=== PATIENT | female | born 1960 | race Caucasian/White ===

== ENCOUNTER 2018-09-04 06:48 | Inpatient (IN) | payer BC, OTHER ==
[2018-09-04 07:37] VITALS: BMI 31.1
--- NOTE | 2018-09-04 08:16 | PDOC ---
History of Present Illness - General Chief Complaint: Blood Pressure Problem Stated Complaint: ELEVATED BLOOD PRESSURE,LT EAR BLEEDING Time Seen by Provider: 09/04/18 07:48 History Source: Patient - History of Present Illness Timing/Duration: other (yesterday) Past History - Past Medical History Allergies/Adverse Reactions: Allergies Allergy/AdvReac Type Severity Reaction Status Date / Time No Known Allergies Allergy Verified 09/04/18 07:20 Home Medications: Ambulatory Orders Amlodipine Besylate [Norvasc -] 10 mg PO DAILY 09/04/18 Cancer: Yes (rt breast) COPD: No HTN: Yes - Immunization History Immunization Up to Date: Yes - Suicide/Smoking/Psychosocial Hx Smoking History: Never smoked Information on smoking cessation initiated: No Hx Alcohol Use: No Drug/Substance Use Hx: No Substance Use Type: None Review of Systems - Review of Systems Constitutional: No: Chills, Fever HEENTM: Yes: Ear Pain Respiratory: No: Shortness of Breath Cardiac (ROS): Yes: Palpitations. No: Chest Pain ABD/GI: Yes: Nausea. No: Vomiting *Physical Exam - Vital Signs Last Vital Signs Temp Pulse Resp BP Pulse Ox 99 F 107 H 18 176/110 H 97 09/04/18 07:17 09/04/18 07:17 09/04/18 07:17 09/04/18 07:17 09/04/18 07:17 - Physical Exam General Appearance: Yes: Appropriately Dressed, Mild Distress HEENT: positive: Normal Voice, Pharynx Normal, Other (purulent debris w/ sig ttp to L canal, no sig swelling, able to visualize a nl jason TM, no swelling/ttp over mastoid) Neck: positive: Supple Respiratory/Chest: positive: Lungs Clear, Normal Breath Sounds. negative: Respiratory Distress Cardiovascular: positive: S1, S2, Tachycardia Gastrointestinal/Abdominal: positive: Soft. negative: Tender Integumentary: positive: Dry, Warm Neurologic: positive: Fully Oriented, Alert, Normal Mood/Affect ED Treatment Course - LABORATORY CBC & Chemistry Diagram: 09/04/18 09:00 09/04/18 09:00 Medical Decision Making - Medical Decision Making 09/04/18 08:12 57 yo female, history of hypertension on Norvasc, here with severe L ear pain with otorrhea since yesterday. No sore throat, fever or chills. No recent trauma. No history of similar episode. See exam Otitis externa -Will tx w/ abx drops upon discharge Elevated BP Bp 176/110 w/ HR 107 Compliant w/ 10mg norvasc per pt Dx w/ HTN 06/01, started on meds by ER doc, does not have a PMD per pt Took home dose of meds while in ED few minutes ago Was asx until in ED, now c/o LIRA, nausea and palpitations No CP/SOB No h/o CAD -ekg and labs pending 09/04/18 10:21 HR now 130s. Rpt BP improved. Patient complaining of palpitations now. Will put on monitor, start IVF and send dimer 09/04/18 12:15 Ddimer elevated. Patient now tells me that she has a history of L breast cancer , s/p double mastectomy and chemotherapy over 13 years ago with no known recurrence. States both of her legs have been "crampy" recently. CTA and bilateral dopplers pending 09/04/18 15:23 CTA read as negative. HR now 105. B/l dopplers pending 09/04/18 15:51 Ultrasound read as negative for DVT. On reassessment, patient reports that she is feeling better. Rpt vitals improved, HR now 97. Pt now tells me that she was seen for palpitations at [facility] last year and was kept overnight. States numerous labs were done including thyroid tests that were all negative. Denies h/o anxiety. Pt states she feels well enough to be discharged. Will give referral to see Dr. Raymond Hill. Cards referral also given. Reasons to return discussed with patient. Dr. Todd aware of disposition 09/04/18 17:25 Pt now reports that she does not feel well enough to go home and states she now has palpitations despite rpt HR being WNL. On further history taking, patient admits that she drank an excessive amount this weekend including several bottles of wine because of "issues with my mother", otherwise denies a history of alcohol abuse to me. ED attg aware. Working diagnosis is now possible alcohol withdrawal, which could explain tachycardia and elevated BP. IV Valium not in stock, will give dose of ativan and admit at this time 09/04/18 18:47 Case d/w hospitalist and pt admitted to OBs *DC/Admit/Observation/Transfer Diagnosis at time of Disposition: Elevated blood pressure reading, Palpitations Otitis externa Qualifiers: Otitis externa type: unspecified type Chronicity: acute Laterality: left Qualified Code(s): H60.502 - Unspecified acute noninfective otitis externa, left ear - Discharge Dispostion Condition at time of disposition: Fair Decision to Admit order: Yes - Referrals Referrals: Raymond Hill MD [Staff Physician] - Martin North MD [Staff Physician] - - Patient Instructions - Post Discharge Activity
[2018-09-04] MEDS ORDERED: IBUPROFEN 400 MG TABLET (FP) PO ONE ×2 (08:17→08:46)
[2018-09-04 09:22] LABS: BASO % 0.5 % (0-2.0); EOS % 0.2 % (0-4.5); HEMATOCRIT 42.3 % (32.4-45.2); HEMOGLOBIN 14.1 GM/dL (10.7-15.3); MCH 30.5 pg (25.7-33.7); MCHC 33.4 g/dl (32.0-36.0); MEAN CELL VOLUME 91.2 fl (80-96); MEAN PLT VOLUME 7.4 fl (7.5-11.1); MONO % 5.5 % (3.8-10.2); NEUT % 79.8 % (42.8-82.8); PLATELET COUNT 283 K/MM3 (134-434); RBC 4.64 M/mm3 (3.60-5.2); RDW 14.9 % (11.6-15.6); WHITE BLOOD COUNT 11.7 K/mm3 (4.0-10.0)
[2018-09-04 09:29] LABS: EPI CELLS 0.9 /HPF (0-5/HPF); URINE APPEARANCE CLEAR; URINE BILIRUBIN NEGATIVE (NEGATIVE); URINE CASTS 0 /lpf (0-8); URINE COLOR YELLOW; URINE GLUCOSE (UA) NEGATIVE (NEGATIVE); URINE KETONE 1+ (NEGATIVE); URINE LEUK ESTERASE NEGATIVE (NEGATIVE); URINE NITRITE NEGATIVE (NEGATIVE); URINE PROTEIN 1+ (NEGATIVE); URINE RBC 1 /hpf (0-4); URINE UROBILINOGEN 0.2 mg/dL (0.2-1.0); URINE WBC 1 /hpf (0-5)
[2018-09-04 10:01] LABS: ALBUMIN 4.1 g/dl (3.4-5.0); ALK PHOS 123 U/L (45-117); ANION GAP 11 MMOL/L (8-16); BILIRUBIN,TOTAL 0.4 mg/dL (0.2-1); BLOOD UREA NITROGEN 7 mg/dL (7-18); CALCIUM 9.5 mg/dL (8.5-10.1); CHLORIDE 100 mmol/L (98-107); CO2 26 mmol/L (21-32); CREATININE 0.6 mg/dL (0.55-1.3); GLUCOSE,RANDOM 100 mg/dL (74-106); SGOT/AST 23 U/L (15-37); SGPT/ALT 28 U/L (13-61); SODIUM 137 mmol/L (136-145); TOT PROT 8.3 g/dl (6.4-8.2)
[2018-09-04] MEDS ORDERED: SODIUM CHLORIDE 1,000 ML IV STA (10:20)
[2018-09-04] MEDS ORDERED: ACETAMINOPHEN 1000 MG/100 ML VIAL (NON FORMULARY) IVPB ONE (10:22)
--- NOTE | 2018-09-04 10:23 | EKG ---
Test Reason : Blood Pressure : / mmHG Vent. Rate : 095 BPM Atrial Rate : 095 BPM P-R Int : 150 ms QRS Dur : 086 ms QT Int : 380 ms P-R-T Axes : 037 -43 016 degrees QTc Int : 477 ms NORMAL SINUS RHYTHM POSSIBLE LEFT ATRIAL ENLARGEMENT LEFT AXIS DEVIATION LEFT VENTRICULAR HYPERTROPHY ANTEROSEPTAL INFARCT (CITED ON OR BEFORE 04-SEP-2018) ABNORMAL ECG WHEN COMPARED WITH ECG OF 09-FEB-2009 09:15, VENT. RATE HAS INCREASED BY 32 BPM QUESTIONABLE CHANGE IN INITIAL FORCES OF SEPTAL LEADS ST NO LONGER DEPRESSED IN INFERIOR LEADS Confirmed by PRABHAKAR SIMMONS, TONNY ([id number]) on 09/04/2018 10:23:22 AM Referred By: Confirmed By:TONNY RADFORD MD
[2018-09-04] MEDS ORDERED: METOCLOPRAMIDE HCL INJECTION 10 MG/2 ML VIAL IVPB ONE (10:52)
[2018-09-04] MEDS ORDERED: METOCLOPRAMIDE HCL INJECTION 10 MG/2 ML VIAL ONE (12:06)
[2018-09-04] MEDS ORDERED: ACETAMINOPHEN INJECTION 100 ML IVPB ONE (12:07)
--- NOTE | 2018-09-04 17:10 | PDOC ---
*Physical Exam - Vital Signs Last Vital Signs Temp Pulse Resp BP Pulse Ox 98.7 F 97 H 18 160/98 97 09/04/18 16:35 09/04/18 16:35 09/04/18 16:35 09/04/18 16:35 09/04/18 16:35 - Physical Exam General Appearance: Yes: Nourished HEENT: positive: ROSA, Other (left ear canal with erythema, crusting. no tenderness over mastoid ) Respiratory/Chest: positive: Lungs Clear, Normal Breath Sounds Cardiovascular: positive: Regular Rhythm, Regular Rate, S1, S2 Gastrointestinal/Abdominal: positive: Normal Bowel Sounds, Flat, Soft. negative : Tender Musculoskeletal: positive: Normal Inspection Extremity: positive: Normal Capillary Refill, Normal Inspection Integumentary: positive: Normal Color, Dry, Warm Neurologic: positive: Fully Oriented, Alert, Normal Mood/Affect ED Treatment Course - LABORATORY CBC & Chemistry Diagram: 09/04/18 09:00 09/04/18 09:00 - ADDITIONAL ORDERS Additional order review: Laboratory Results 09/04/18 09/04/18 09/04/18 11:01 09:15 09:00 D-Dimer 763 H Sodium 137 Potassium 4.0 Chloride 100 Carbon Dioxide 26 Anion Gap 11 BUN 7 Creatinine 0.6 Creat Clearance w eGFR 103.04 Random Glucose 100 Calcium 9.5 Total Bilirubin 0.4 AST 23 ALT 28 Alkaline Phosphatase 123 H Creatine Kinase 185 Creatine Kinase Index 0.8 CK-MB (CK-2) 1.6 Troponin I < 0.02 Total Protein 8.3 H Albumin 4.1 Urine Color Yellow Urine Appearance Clear Urine pH 8.0 Ur Specific [place] 1.014 Urine Protein 1+ H Urine Glucose (UA) Negative Urine Ketones 1+ H Urine Blood Negative Urine Nitrite Negative Urine Bilirubin Negative Urine Urobilinogen 0.2 Ur Leukocyte Esterase Negative Urine WBC (Auto) 1 Urine RBC (Auto) 1 Urine Casts (Auto) 0 U Epithel Cells (Auto) 0.9 Urine Bacteria (Auto) 9.0 09/04/18 09:00 RBC 4.64 MCV 91.2 MCHC 33.4 RDW 14.9 MPV 7.4 L Neutrophils % 79.8 Lymphocytes % 14.0 Monocytes % 5.5 Eosinophils % 0.2 Basophils % 0.5 - Medications Given in the ED: ED Medications Discontinued Medications Generic Name Dose Route Start Last Admin Trade Name Freq PRN Reason Stop Dose Admin Acetaminophen 1,000 mg 09/04/18 10:22 09/04/18 12:00 Ofirmev Injection - IVPB 09/04/18 10:23 1,000 mg ONCE ONE Administration Sodium Chloride 1,000 mls @ 1,000 mls/hr 09/04/18 10:20 09/04/18 12:00 Normal Saline - IV 09/04/18 11:19 1,000 mls/hr ASDIR STA Administration Ibuprofen 800 mg 09/04/18 08:17 09/04/18 09:00 Motrin - PO 09/04/18 08:18 800 mg ONCE ONE Administration Metoclopramide HCl 10 mg 09/04/18 10:52 09/04/18 12:00 Reglan Injection - IVPB 09/04/18 10:53 10 mg ONCE ONE Administration Medical Decision Making - Medical Decision Making 09/04/18 17:07 57 yo F h/o palpitations, breast ca c/p mastectomuy bilat. HTN ( admitted to [facility] 06/01) here with /co left ear pain. pt states her ear canal has been hurting for week. witth drainage. no trauma. no headache. no f/c. in addition, pt states she is having palpitations. no cp no sob. states she saw modeling analyst for this in [facility] but has not followed up, denies daily etoh intake, but did have binge of etoh this weekend. denies h/o etoh withdrawal sxs. has been borderline diabetic in the past. pt seen and examined with keerthi moss. differentia include dehydration infection anbemia. initial heart rate 130, pt heart rate improved with hydration but still c/o palpations. d dimer to r/o pe due to h/o cancer. positive. cta and dopplers ordered and negative. . due to persistant palpations will admit, otitis externia and dysthyrmia, concerns for etoh withdrawal. htn *DC/Admit/Observation/Transfer Diagnosis at time of Disposition: Elevated blood pressure reading, Palpitations Otitis externa Qualifiers: Otitis externa type: unspecified type Chronicity: acute Laterality: left Qualified Code(s): H60.502 - Unspecified acute noninfective otitis externa, left ear - Discharge Dispostion Disposition: HOME Condition at time of disposition: Improved - Referrals Referrals: Martin North MD [Staff Physician] - Raymond Hill MD [Staff Physician] - - Patient Instructions Printed Discharge Instructions: DI for High Blood Pressure, DI for Palpitations Additional Instructions: Your blood pressure was elevated here. You need to be seen by a primary care doctor for better management. You were given referred to Dr. Raymond Jackson. Please call for an appointment this week The reasons for your palpitations are unclear at this time as your labs and CT of your chest were all negative. Please follow-up with Dr. North of cardiology. If symptoms return/worsen, return to ED immediately - Post Discharge Activity
[2018-09-04] MEDS ORDERED: diazePAM CARPU-JECT 10 MG/2 ML DISP.SYRIN IVPUSH ONE (17:25)
[2018-09-04] MEDS ORDERED: chlordiazePOXIDE HCL 25 MG CAPSULE ONE (18:15)
[2018-09-04] MEDS ORDERED: LORazepam 0.5 MG TABLET ONE (18:16)
[2018-09-04] MEDS ORDERED: chlordiazePOXIDE HCL 25 MG CAPSULE PO ONE (18:24)
[2018-09-04] MEDS ORDERED: LORazepam 1 MG TABLET PO ONE (18:24)
--- NOTE | 2018-09-04 18:45 | HP ---
CHIEF COMPLAINT:L Ear pain and discharge x2 days, palpitations x1 day PCP: None HISTORY OF PRESENT ILLNESS: Pt is a 57 yo F with PMHx of HTN, preDM, breast cancer s/p b/l mastectomy now presenting with palpitations since this am and L Ear pain and discharge x2 days. Pt denies chest pain, has non specific SOB, not related to palpitations. No leg swelling, no known cardiac workup. Pt was recently diagnosed with HTN in May 2018 and placed on amlodipine. Pt has had to refill her prescription using a relative due to insurance issues. Pt reports L ear pain and discharge that started yesterday. Pt has been having ear fullness and feeling like fluid in the ear since she had URTI about 3 weeks ago. No hearing loss, no tinnitus, no vertigo. Today the pt reported chills but no subjective fevers. She also reported a left sided headache with nausea. No seizures, no syncope, no hx of migraines in past. On Sunday, she reported sharing a bottle of wine with a friend, after getting into an argument with her mother, but cannot say what percent of alcohol was in the bottle. She denies smoking, or illicit drug use. 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 Recently started a new job, yet to activate insurance Lives alone in [place], communicates with mother in [place] Smoking: Denies Alcohol:Unclear Drugs: Denies Family History: Father in 60s of an aneurysm, Mother healthy in her 80s Not in touch with siblings Has grown kids-healthy Allergies No Known Allergies Allergy (Verified 09/04/18 07:20) HOME MEDICATIONS: Home Medications Medication Instructions Recorded Amlodipine Besylate [Norvasc -] 10 mg PO DAILY 09/04/18 REVIEW OF SYSTEMS CONSTITUTIONAL: chills+ Absent: fever, diaphoresis, generalized weakness, malaise, loss of appetite, weight change HEENT: visual changes blurry vision+ Absent: rhinorrhea, nasal congestion, throat pain, throat swelling, difficulty swallowing, mouth swelling, ear pain, eye pain, CARDIOVASCULAR: Palpitations Absent: chest pain, syncope, palpitations, irregular heart rate, lightheadedness , peripheral edema RESPIRATORY: Absent: cough, shortness of breath, dyspnea with exertion, orthopnea, wheezing, stridor, hemoptysis GASTROINTESTINAL:nausea+ Absent: abdominal pain, abdominal distension, , vomiting, diarrhea, constipation , melena, hematochezia GENITOURINARY: Absent: dysuria, frequency, urgency, hesitancy, hematuria, flank pain, genital pain MUSCULOSKELETAL: Absent: myalgia, arthralgia, joint swelling, back pain, neck pain SKIN: Absent: rash, itching, pallor HEMATOLOGIC/IMMUNOLOGIC: Absent: easy bleeding, easy bruising, lymphadenopathy, frequent infections ENDOCRINE: Absent: unexplained weight gain, unexplained weight loss, heat intolerance, cold intolerance NEUROLOGIC: headache+ Absent: focal weakness or paresthesias, dizziness, unsteady gait, seizure, mental status changes, bladder or bowel incontinence PSYCHIATRIC: anxiety+ Absent: depression, suicidal or homicidal ideation, hallucinations. PHYSICAL EXAMINATION Vital Signs - 24 hr 09/04/18 09/04/18 09/04/18 07:17 10:23 16:35 Temperature 99 F 98.7 F Pulse Rate 107 H Pulse Rate [ 130 H 97 H Left Radial] Respiratory 18 19 18 Rate Blood Pressure 176/110 H Blood Pressure 160/98 [Left Arm] Blood Pressure 137/111 H [Right Arm] O2 Sat by Pulse 97 98 97 Oximetry (%) GENERAL: Awake, alert, and fully oriented, in no acute respiratory distress. HEAD: Normal with no signs of trauma. EYES: Pupils equal, round and reactive to light, extraocular movements intact, sclera anicteric, conjunctiva clear. EARS, NOSE, THROAT: L Ear with external ulcer with yellowish edge, non draining , non bleeding, tenderness+, L mandibular fullness compared to R mandible, oropharynx clear without exudates. Moist mucous membranes. NECK: supple LUNGS: Breath sounds equal, clear to auscultation bilaterally. No wheezes, and no crackles. HEART: Regular rate and rhythm, normal S1 and S2 without murmur ABDOMEN: Soft, nontender, not distended, normoactive bowel sounds, no guarding MUSCULOSKELETAL: Normal range of motion at all joints. No bony deformities or tenderness. No CVA tenderness. LOWER EXTREMITIES: 2+ pulses, warm, well-perfused. No calf tenderness. No peripheral edema. NEUROLOGICAL: Cranial nerves II-XII intact. Normal speech. Gait not observed. Fine tremors on outstretched arm PSYCHIATRIC: Anxious, Cooperative. Good eye contact. Appropriate mood and affect. CBC, BMP 09/04/18 09:00 09/04/18 09:00 Laboratory Results - last 24 hr 09/04/18 09/04/18 09/04/18 09:00 09:00 09:15 WBC 11.7 H RBC 4.64 Hgb 14.1 Hct 42.3 MCV 91.2 MCH 30.5 MCHC 33.4 RDW 14.9 Plt Count 283 MPV 7.4 L Absolute Neuts (auto) 9.4 H Neutrophils % 79.8 Lymphocytes % 14.0 Monocytes % 5.5 Eosinophils % 0.2 Basophils % 0.5 Nucleated RBC % 0 D-Dimer Sodium 137 Potassium 4.0 Chloride 100 Carbon Dioxide 26 Anion Gap 11 BUN 7 Creatinine 0.6 Creat Clearance w eGFR 103.04 Random Glucose 100 Calcium 9.5 Total Bilirubin 0.4 AST 23 ALT 28 Alkaline Phosphatase 123 H Creatine Kinase 185 Creatine Kinase Index 0.8 CK-MB (CK-2) 1.6 Troponin I < 0.02 Total Protein 8.3 H Albumin 4.1 Urine Color Yellow Urine Appearance Clear Urine pH 8.0 Ur Specific [place] 1.014 Urine Protein 1+ H Urine Glucose (UA) Negative Urine Ketones 1+ H Urine Blood Negative Urine Nitrite Negative Urine Bilirubin Negative Urine Urobilinogen 0.2 Ur Leukocyte Esterase Negative Urine WBC (Auto) 1 Urine RBC (Auto) 1 Urine Casts (Auto) 0 U Epithel Cells (Auto) 0.9 Urine Bacteria (Auto) 9.0 09/04/18 11:01 WBC RBC Hgb Hct MCV MCH MCHC RDW Plt Count MPV Absolute Neuts (auto) Neutrophils % Lymphocytes % Monocytes % Eosinophils % Basophils % Nucleated RBC % D-Dimer 763 H Sodium Potassium Chloride Carbon Dioxide Anion Gap BUN Creatinine Creat Clearance w eGFR Random Glucose Calcium Total Bilirubin AST ALT Alkaline Phosphatase Creatine Kinase Creatine Kinase Index CK-MB (CK-2) Troponin I Total Protein Albumin Urine Color Urine Appearance Urine pH Ur Specific [place] Urine Protein Urine Glucose (UA) Urine Ketones Urine Blood Urine Nitrite Urine Bilirubin Urine Urobilinogen Ur Leukocyte Esterase Urine WBC (Auto) Urine RBC (Auto) Urine Casts (Auto) U Epithel Cells (Auto) Urine Bacteria (Auto) ASSESSMENT/PLAN: Pt is a 57 yo F with PMHx of HTN, preDM, breast cancer s/p b/l mastectomy now presenting with palpitations since this am and L Ear pain and discharge x2 days. #Palpitations No chest pain or SOB No hx of afib, no recent cardiac workup Recent HTN diagnosis May 2018, poorly mx EKG- with LAD and possible LVH ECHO Trops negative x2 Cardiac monitoring Could be in setting of sinus tachycardia possibly due to anxiety/withdawal Follow TSH #Elevated BP Pt with poorly controlled HTN Negative trops UA-1+ protein On amlodipine Add lisinopril 20mg HS HCTZ 12.5mg am daily Could be in setting of withdrawal CIWA-10 Last drink sunday ETOH <3 Stop NS Follow ECHO EKG- with LAD and possible LVH Abd US #Otitis externa Appears to be localized and moderate Cannot R/O bone affectation with mandibular fullness CT head/facial bones w/o contrast Repeat CBC corticosporin ear drops Rectal temp stat if evidence of sepsis- worsening WBC, fever and persistent tachycardia, pt will benefit from systemic AB, for now will follow Unclear risk factors- pt is PreDM, now with 1+ ketone- HgbA1c stat Breast cancer hx 13 years ago, pt appears in remission Continue to follow #Breast cancer hx s/p mastectomy and chemotx with chemically induced menopause hx 13 years ago, pt appears in remission Has not followed oncologist or PCP in years Elevated isolated ALP- R/O mets vs liver pathology GGT aded Abd US #PreDM Pt with moderate Otitis externa UA-ketones -1+, Proteinuria 1+ HgbA1c stat Glucose -100 Cont to monitor ACEI added to BP meds #Elevated Alk Phos Isolated elevated ALK Phosp Hx of breast ca- does not follow hemonc GGT Abd US #Possible alcohol withdawal Unable to say how much ETOH consumed Serum ETOH low CIWA-10 In setting of elevated ALP Ativan protocol started #Obesity Counselling on diet and exercise #FEN No standing fluids Monitor electrolytes, replete as needed Sodium controlled diet #PPx LOvenox sq 40mg #Dispo Tele admit Visit type - Emergency Visit Emergency Visit: Yes ED Registration Date: 09/04/18 Care time: The patient presented to the Emergency Department on the above date and was hospitalized for further evaluation of their emergent condition. - New Patient This patient is new to me today: Yes Date on this admission: 09/04/18 - Critical Care Critical Care patient: No
--- NOTE | 2018-09-04 19:20 | PN ---
Teaching Attending Note Name of Resident: Sheila Oro ATTENDING PHYSICIAN STATEMENT I saw and evaluated the patient. I reviewed the resident's note and discussed the case with the resident. I agree with the resident's findings and plan as documented. SUBJECTIVE: Patient is a 57 year old woman with PMH of palpitations, bilateral mastectomy for cancer, borderline DM and HTN who presents with left ear pain for 1 week. Says states her ear canal has been hurting for week with drainage. Denies trauma and prior headache, but developed headache in the ER. Says she recently had an URI. Denies fever, chills, chest pain, SOB or vomiting but has nausea. Had binge of alcohol intake this weekend wit friends due to stress. No history of swimming or prior ear infections. Says she has problems with her health insurance because she changed jobs. In the ER she was treated with medications for alcohol withdrawal and got IV NS. OBJECTIVE: Alert Vital Signs Period Temp Pulse Resp BP Sys/Singh Pulse Ox Last 24 Hr 98.7 F-99 F 97-130 18-19 137-176/98-111 97-98 HEENT: No Jaundice, eye redness or discharge, PERRLA, EOMI. Normocephalic, atraumatic. Left mandibular fullness, tender left ear lobe but no active drainage. Hearing is grossly intact. No nasal discharge. Neck: Supple, nontender. No palpable adenopathy or thyromegaly. No JVD Chest: Good effort. Clear to auscultation and percussion. Heart: Regular. No S3, rub or murmur Abdomen: Not distended, soft, nontender and no HSM. No rebound or guarding. Normal bowel sounds. Ext: Peripheral pulses intact. No leg edema. Skin: Warm and dry. No petechiae, rash or ecchymosis. Neuro: Alert. Oriented x3. Fine hand tremors. CN 2-12 grossly intact. Sensation grossly intact in all four extremities and DTR are symmetric. Psych: Appropriate mood and affect. Good insight. Current Medications Generic Name Dose Route Start Last Admin Trade Name Freq PRN Reason Stop Dose Admin Enoxaparin Sodium 40 mg 09/04/18 20:00 Lovenox - SQ DAILY CRISTOBAL Hydrochlorothiazide 12.5 mg 09/05/18 10:00 Hctz - PO DAILY CRISTOBAL Lisinopril 20 mg 09/04/18 22:00 Prinivil PO HS CRISTOBAL Lorazepam 0.5 mg 09/06/18 23:00 Ativan - PO 09/07/18 23:01 0500,1100,1700,2300 CRISTOBAL Lorazepam 0.5 mg 09/06/18 23:00 Ativan - PO 09/07/18 23:00 Q4H PRN Symptoms of Withdrawal Lorazepam 1 mg 09/05/18 23:00 Ativan - PO 09/06/18 17:01 0500,1100,1700,2300 CRISTOBAL Lorazepam 1 mg 09/04/18 19:41 Ativan - PO 09/06/18 23:00 Q4H PRN Symptoms of Withdrawal Neomycin/Polymyxin/Hydrocortisone 4 drop 09/05/18 00:00 Cortisporin Otic Solution - AU Q6HPO [facility] Home Medications Medication Instructions Recorded Amlodipine Besylate [Norvasc -] 10 mg PO DAILY 09/04/18 Abnormal Lab Results 09/04/18 09/04/18 09/04/18 09:00 09:00 09:15 WBC 11.7 H MPV 7.4 L Absolute Neuts (auto) 9.4 H D-Dimer Alkaline Phosphatase 123 H Total Protein 8.3 H Urine Protein 1+ H Urine Ketones 1+ H 09/04/18 11:01 WBC MPV Absolute Neuts (auto) D-Dimer 763 H Alkaline Phosphatase Total Protein Urine Protein Urine Ketones ASSESSMENT AND PLAN: 1. Left otitis externa with palpitations - EKG shows NSR with no ST-T wave changes and troponin is negative. Will admit to telemetry to rule out ACS, get ECHO and TSH. Doppler showed no DVT and CTA showed no PE. Will get CT of brain and facial bones. Will treat with cortisporin otic solution. Repeat CBC stat and temp - if any evidence of systemic involvement or malignant otitis extrena, will give IV antibitotics in view of history of borderline DM. HbA1c, urine toxicology and alcohol level pending. 2. Uncontrolled Hypertension - Restart outpatient antihypertensive drug; add lisinopril and HCTZ and revise regimen to ensure smooth [id number] good BP control. Nonpharmacologic measures to control hypertension like weight loss, salt restriction and exercise discussed. Consult social media content manager to help address her health insurance issue. 3. Obesity Counseled on the risks associated with obesity. Will provide patient all the necessary assistance, counseling and positive reinforcement to facilitate weight loss. Consult data communications software consultant. 4. Alcohol abuse - Implement [facility] alcohol withdrawal protocol and do neurochecks. Implement seizure, fall and aspiration precautions. Treat with thiamine and folic acid and monitor electrolytes (Ca,Mg,K,P). Counseled patient about abstaining from alcohol. Will refer to alcohol detox upon discharge. 5. DVT prophylaxis - Lovenox 40 mg SQ q 24 hours. 6. Advance directives - Full code
[2018-09-04] MEDS ORDERED: LORazepam 1 MG TABLET PO PRN (19:41)
[2018-09-04] MEDS ORDERED: LISINOPRIL 20 MG TABLET (FP) ONE (20:57)
[2018-09-04] MEDS ORDERED: ENOXAPARIN NA (PORCINE) 40 MG/0.4 ML DISP.SYRIN SQ ONE (20:57)
[2018-09-04] MEDS: ENOXAPARIN NA (PORCINE) 40 MG/0.4 ML DISP.SYRIN SQ SCH (22:50)
[2018-09-04] MEDS: LISINOPRIL 20 MG TABLET (FP) PO SCH (22:50)
[2018-09-04] MEDS: NEOMYCIN/POLYMYXN/HC OTIC SOLUTION 10 ML BOTTLE AU SCH (23:05)
[2018-09-05 02:32] LABS: BASO % 0.4 % (0-2.0); EOS % 0.5 % (0-4.5); HEMOGLOBIN 13.9 GM/dL (10.7-15.3); LYMPH % 19.9 % (8-40); MCH 30.7 pg (25.7-33.7); MCHC 33.9 g/dl (32.0-36.0); MEAN CELL VOLUME 90.7 fl (80-96); MEAN PLT VOLUME 7.3 fl (7.5-11.1); MONO % 10.7 % (3.8-10.2); NEUT % 68.5 % (42.8-82.8); PLATELET COUNT 258 K/MM3 (134-434); RBC 4.52 M/mm3 (3.60-5.2); RDW 14.9 % (11.6-15.6); WHITE BLOOD COUNT 8.8 K/mm3 (4.0-10.0)
[2018-09-05] MEDS ORDERED: LORazepam 0.5 MG TABLET ONE ×2 (05:39→11:28)
[2018-09-05] MEDS: LORazepam 1 MG TABLET PO SCH ×5 (05:45→23:40)
[2018-09-05] MEDS: NEOMYCIN/POLYMYXN/HC OTIC SOLUTION 10 ML BOTTLE AU SCH ×2 (05:45→18:37)
[2018-09-05] MEDS ORDERED: ACETAMINOPHEN 325 MG TABLET (FP) PO ONE (06:19)
[2018-09-05] MEDS ORDERED: ACETAMINOPHEN 325 MG TABLET (FP) ONE (07:36)
[2018-09-05 07:52] LABS: BASO % 0.5 % (0-2.0); EOS % 0.8 % (0-4.5); HEMATOCRIT 41.8 % (32.4-45.2); HEMOGLOBIN 14.5 GM/dL (10.7-15.3); LYMPH % 17.3 % (8-40); MCH 30.9 pg (25.7-33.7); MCHC 34.6 g/dl (32.0-36.0); MEAN CELL VOLUME 89.3 fl (80-96); MEAN PLT VOLUME 7.3 fl (7.5-11.1); MONO % 10.6 % (3.8-10.2); NEUT % 70.8 % (42.8-82.8); PLATELET COUNT 269 K/MM3 (134-434); RBC 4.68 M/mm3 (3.60-5.2); RDW 14.5 % (11.6-15.6)
[2018-09-05 08:15] LABS: ALBUMIN 3.7 g/dl (3.4-5.0); ALK PHOS 114 U/L (45-117); ANION GAP 8 MMOL/L (8-16); BLOOD UREA NITROGEN 11 mg/dL (7-18); CALCIUM 9.5 mg/dL (8.5-10.1); CHLORIDE 100 mmol/L (98-107); CHOLESTEROL 305 mg/dL (50-200); CO2 25 mmol/L (21-32); CREATININE 0.7 mg/dL (0.55-1.3); GLUCOSE,RANDOM 107 mg/dL (74-106); MAGNESIUM 2.1 mg/dL (1.8-2.4); PHOSPHOROUS 3.6 mg/dL (2.5-4.9); POTASSIUM 3.7 mmol/L (3.5-5.1); SGOT/AST 15 U/L (15-37); SGPT/ALT 24 U/L (13-61); SODIUM 133 mmol/L (136-145); TOT PROT 7.6 g/dl (6.4-8.2)
[2018-09-05 08:19] LABS: INR 1.08 (0.83-1.09); PROTHROMBIN TIME (PATIENT) 12.8 SEC (9.7-13.0)
[2018-09-05 08:22] LABS: ACTIVATED PTT 37.8 SECONDS (25.2-36.5)
[2018-09-05] MEDS: HYDROCHLOROTHIAZIDE 12.5 MG CAPSULE (FP) PO SCH (10:44)
[2018-09-05] MEDS: THIAMINE HCL 100 MG TABLET (FP) PO SCH (10:44)
[2018-09-05] MEDS: ENOXAPARIN NA (PORCINE) 40 MG/0.4 ML DISP.SYRIN SQ SCH (10:44)
[2018-09-05] MEDS: FOLIC ACID 1 MG TABLET (FP) PO SCH (10:44)
--- NOTE | 2018-09-05 12:07 | EKG ---
Test Reason : Blood Pressure : / mmHG Vent. Rate : 090 BPM Atrial Rate : 090 BPM P-R Int : 154 ms QRS Dur : 086 ms QT Int : 390 ms P-R-T Axes : 055 -48 017 degrees QTc Int : 477 ms NORMAL SINUS RHYTHM LEFT AXIS DEVIATION MINIMAL VOLTAGE CRITERIA FOR LVH, MAY BE NORMAL VARIANT INFERIOR INFARCT , AGE UNDETERMINED ANTEROSEPTAL INFARCT (CITED ON OR BEFORE 04-SEP-2018) ABNORMAL ECG WHEN COMPARED WITH ECG OF 04-SEP-2018 08:41, QUESTIONABLE CHANGE IN INITIAL FORCES OF SEPTAL LEADS Confirmed by KAYLIN PAL MD ([id number]) on 09/05/2018 12:07:00 PM Referred By: Confirmed By:KAYLIN PAL MD
--- NOTE | 2018-09-05 13:09 | ECHO ---
Name: DANIEL ANDRADE Exam:Adult Echocardiogram Study Date: 09/05/2018 08:57 AM Age: 57 yrs Reason For Study: PALPITATIONS Height: 62 in Weight: 170 lb BSA: 1.8 m2 Doppler Measurements & Calculations TR max evelio: 243.2 cm/sec TR max P.7 mmHg Procedure The study was technically limited with all images being suboptimal in quality. Left Ventricle The left ventricle is grossly normal size. Left ventricular systolic function is grossly normal. Alicia onal wall motion abnormalities cannot be excluded due to limited visualization. Right Ventricle The right ventricle is grossly normal size. The right ventricular systolic function is grossly normal . Atria The left atrium is not well visualized. Right atrium not well visualized. Mitral Valve The mitral valve is not well visualized. Tricuspid Valve The tricuspid valve is not well visualized. Aortic Valve The aortic valve is not well visualized. Pulmonic Valve The pulmonic valve is not well visualized. Great Vessels The aortic root is not well visualized. Pericardium/Pleura There is no pericardial effusion. Interpretation Summary The study was technically limited with all images being suboptimal in quality. Left ventricular systolic function is grossly normal. The left ventricle is grossly normal size. The right ventricle is grossly normal size. The right ventricular systolic function is grossly normal. Valves not well visualized. MD Mauro Cano 09/05/2018 01:09 PM
--- NOTE | 2018-09-05 13:09 | PN ---
Teaching Attending Note Name of Resident: Carri Georges ATTENDING PHYSICIAN STATEMENT I saw and evaluated the patient. I reviewed the resident's note and discussed the case with the resident. I agree with the resident's findings and plan as documented. SUBJECTIVE: Patient reports palpitations. She denies CP, SOB. OBJECTIVE: Vital Signs Period Temp Pulse Resp BP Sys/Singh Pulse Ox Last 24 Hr 98.0 F-99.2 F 82-99 18-18 111-160/71-98 97-97 HEART: S1S2, tachycardic LUNGS: Clear ABDOMEN: Obese, soft, non-tender, non-distended, normal BS EXTREMITIES: No edema Laboratory Results - last 24 hr 09/04/18 09/04/18 09/05/18 19:30 19:30 01:22 WBC 8.8 RBC 4.52 Hgb 13.9 Hct 41.0 MCV 90.7 MCH 30.7 MCHC 33.9 RDW 14.9 Plt Count 258 MPV 7.3 L Absolute Neuts (auto) 6.0 Neutrophils % 68.5 Lymphocytes % 19.9 D Monocytes % 10.7 H D Eosinophils % 0.5 D Basophils % 0.4 Nucleated RBC % 0 PT with INR INR PTT (Actin FS) Sodium Potassium Chloride Carbon Dioxide Anion Gap BUN Creatinine Creat Clearance w eGFR Random Glucose Hemoglobin A1c % Calcium Phosphorus Magnesium Total Bilirubin GGT AST ALT Alkaline Phosphatase Creatine Kinase Troponin I < 0.02 Total Protein Albumin Cholesterol TSH Alcohol, Quantitative < 3.0 09/05/18 09/05/18 09/05/18 01:22 01:22 06:35 WBC 7.0 RBC 4.68 Hgb 14.5 Hct 41.8 MCV 89.3 MCH 30.9 MCHC 34.6 RDW 14.5 Plt Count 269 MPV 7.3 L Absolute Neuts (auto) 4.9 Neutrophils % 70.8 Lymphocytes % 17.3 Monocytes % 10.6 H Eosinophils % 0.8 Basophils % 0.5 Nucleated RBC % 0 PT with INR INR PTT (Actin FS) Sodium Potassium Chloride Carbon Dioxide Anion Gap BUN Creatinine Creat Clearance w eGFR Random Glucose Hemoglobin A1c % 6.0 Calcium Phosphorus Magnesium Total Bilirubin GGT 45 AST ALT Alkaline Phosphatase Creatine Kinase Troponin I Total Protein Albumin Cholesterol TSH Alcohol, Quantitative 09/05/18 09/05/18 06:35 06:35 WBC RBC Hgb Hct MCV MCH MCHC RDW Plt Count MPV Absolute Neuts (auto) Neutrophils % Lymphocytes % Monocytes % Eosinophils % Basophils % Nucleated RBC % PT with INR 12.80 INR 1.08 PTT (Actin FS) 37.8 H Sodium 133 L Potassium 3.7 Chloride 100 Carbon Dioxide 25 Anion Gap 8 BUN 11 Creatinine 0.7 Creat Clearance w eGFR 86.25 Random Glucose 107 H Hemoglobin A1c % Calcium 9.5 Phosphorus 3.6 Magnesium 2.1 Total Bilirubin 1.0 GGT AST 15 ALT 24 Alkaline Phosphatase 114 Creatine Kinase 130 Troponin I < 0.02 Total Protein 7.6 Albumin 3.7 Cholesterol 305 H TSH 3.79 H Alcohol, Quantitative Current Medications Generic Name Dose Route Start Last Admin Trade Name Freq PRN Reason Stop Dose Admin Enoxaparin Sodium 40 mg 09/04/18 20:00 09/05/18 10:44 Lovenox - SQ 40 mg DAILY [facility] Administration Folic Acid 1 mg 09/05/18 10:00 09/05/18 10:44 Folic Acid - PO 1 mg DAILY [facility] Administration Hydrochlorothiazide 12.5 mg 09/05/18 10:00 09/05/18 10:44 Hctz - PO 12.5 mg DAILY [facility] Administration Lisinopril 20 mg 09/04/18 22:00 09/04/18 22:50 Prinivil PO 20 mg HS [facility] Administration Lorazepam 0.5 mg 09/06/18 05:00 Ativan - PO 09/07/18 05:01 0500,1100,1700,2300 [facility] Lorazepam 0.5 mg 09/06/18 05:00 Ativan - PO 09/07/18 04:59 Q4H PRN Symptoms of Withdrawal Lorazepam 1 mg 09/05/18 05:00 09/05/18 11:39 Ativan - PO 09/05/18 23:01 1 mg 0500,1100,1700,2300 [facility] Administration Lorazepam 1 mg 09/04/18 19:41 Ativan - PO 09/06/18 23:00 Q4H PRN Symptoms of Withdrawal Neomycin/Polymyxin/Hydrocortisone 4 drop 09/05/18 00:00 09/05/18 05:45 Cortisporin Otic Solution - AU 4 drop Q6H [facility] Administration Thiamine HCl 100 mg 09/05/18 10:00 09/05/18 10:44 Vitamin B1 - PO 100 mg DAILY [facility] Administration ASSESSMENT AND PLAN: This is a 57 year old woman with a history of HTN, breast cancer, bilateral mastectomies who presented to the ED with palpitations and left ear pain. 1. Palpitations secondary to sinus tachycardia - Troponin negative x 3 - TSH is high - Echo shows normal LV systolic function, normal size LV, normal size RV, normal RV systolic function - Cardiology eval 2. HTN, uncontrolled - Continue lisinopril, HCTZ - Norvasc held secondary to leg edema 3. Left otitis externa - Continue Cortisporin ear drops 4. Continuous alcohol dependence with uncomplicated withdrawal - Continue Ativan detox - Continue thiamine, folic acid 5. History of breast cancer, bilateral mastectomies, chemo 6. Obesity with BMI 31.1
--- NOTE | 2018-09-05 14:43 | CON.CARD ---
Consult Consult Specialty:: Cardiology Referred by:: Medicine Reason for Consultation:: palpitations - History of Present Illness Chief Complaint: palpitations History of Present Illness: 57F h/o HTN, prediabetes, breast ca s/p faith mastectomy p/w palps, ear pain. Treating for otitis externa. Also with palps, no chest pain, dyspnea. Butler since morning of day of admission. She has had palps intermittently for the last 6 months. Had been seen in an ER with chest pain in May, per patient she saw a sign fabricator there and stress test and echo were unremarkable. She was supposed to follow up but was unable to due to work schedule. Has been under a lot of stress. - Alcohol/Substance Use Hx Alcohol Use: No - Smoking History Smoking history: Never smoked Home Medications - Allergies Allergies/Adverse Reactions: Allergies Allergy/AdvReac Type Severity Reaction Status Date / Time No Known Allergies Allergy Verified 09/04/18 07:20 - Home Medications Home Medications: Ambulatory Orders Amlodipine Besylate [Norvasc -] 10 mg PO DAILY 09/04/18 Family Disease History - Family Disease History Family History: Unremarkable Review of Systems - Review of Systems Constitutional: reports: No Symptoms Eyes: reports: No Symptoms HENT: reports: No Symptoms Neck: reports: No Symptoms Cardiovascular: reports: No Symptoms Respiratory: reports: No Symptoms Gastrointestinal: reports: No Symptoms Genitourinary: reports: No Symptoms Musculoskeletal: reports: No Symptoms Integumentary: reports: No Symptoms Neurological: reports: No Symptoms Endocrine: reports: No Symptoms Hematology/Lymphatic: reports: No Symptoms Vital Signs: Vital Signs Temperature 99.2 F 09/05/18 07:05 Pulse Rate 82 09/05/18 07:05 Respiratory Rate 18 09/05/18 03:40 Blood Pressure 111/71 09/05/18 07:05 O2 Sat by Pulse Oximetry (%) 97 09/05/18 07:05 Constitutional: Yes: Well Nourished, No Distress, Calm Eyes: Yes: Conjunctiva Clear, EOM Intact HENT: Yes: Atraumatic, Normocephalic Neck: Yes: Supple, Trachea Midline Respiratory: Yes: Regular, CTA Bilaterally Gastrointestinal: Yes: Normal Bowel Sounds, Soft Cardiovascular: Yes: Regular Rate and Rhythm JVD: No Carotid Bruit: No PMI: Non-Displaced Heart Sounds: Yes: S1, S2 Murmur: No: Systolic Murmur Musculoskeletal: No: Back Pain Extremities: No: Cold Edema: No Peripheral Pulses WNL: Yes Peripheral Pulses: 2+ Left Doralis Pedis, 2+ Right Dorsalis Pedis Integumentary: No: Jaundice Neurological: Yes: Alert, Oriented Psychiatric: No: Agitated - Other Data Labs, Other Data: CBC, BMP 09/05/18 06:35 09/05/18 06:35 INR, PTT INR 1.08 (0.83-1.09) 09/05/18 06:35 Troponin, BNP 09/04/18 09/05/18 19:30 06:35 Troponin I < 0.02 < 0.02 Troponin, BNP 09/04/18 09/05/18 19:30 06:35 Troponin I < 0.02 < 0.02 Assessment/Plan EKG: sinus, nl intervals, LVH, no ischemic changes echo 08/2018 tds. grossly nl LV function, grossly nl RV, valves not well visualized Palpitations - trop neg x 2 - echo technically difficult, grossly nl LV function - reportedly prior stress normal - palps for at least 6 months, bothersome to patient - start metoprolol for symptom control - monitor on tele - has not been connected in ER HTN - on amlodipine, started here on HCTZ and lisinopril - monitor BP, improving - also treating for EtOH withdrawal otitis externa - manage per primary EtOH withdrawal - CIWA protocol per primary HLD - total cholesterol 305 - check complete lipid panel - start atorvastatin
--- NOTE | 2018-09-05 16:19 | PN ---
Physical Exam: SUBJECTIVE: Patient seen and examined this AM. BP Improved this AM, No chest pain, No SOB. No acute overnight events as per nursing. OBJECTIVE: Vital Signs Period Temp Pulse Resp BP Sys/Singh Pulse Ox Last 24 Hr 98.0 F-99.2 F 82-99 18-18 111-160/71-98 97-97 GENERAL: A&Ox3, NAD HEAD: NCAT EYES: PERRL, EOMI ENT: L Ear external ulceration with mild tenderness to touch, no drainage, moist mucous membranes NECK: Supple LUNGS: Diminished breath sounds at the bases, No wheezes, no crackles HEART: Regular rate and rhythm, S1, S2 without murmur ABDOMEN: Obese, Soft, nontender, nondistended, + bowel sounds, no guarding EXTREMITIES: No edema NEUROLOGICAL: Cranial nerves II through XII grossly intact. SKIN: Warm, dry Laboratory Results - last 24 hr 09/04/18 09/04/18 09/05/18 19:30 19:30 01:22 WBC 8.8 RBC 4.52 Hgb 13.9 Hct 41.0 MCV 90.7 MCH 30.7 MCHC 33.9 RDW 14.9 Plt Count 258 MPV 7.3 L Absolute Neuts (auto) 6.0 Neutrophils % 68.5 Lymphocytes % 19.9 D Monocytes % 10.7 H D Eosinophils % 0.5 D Basophils % 0.4 Nucleated RBC % 0 PT with INR INR PTT (Actin FS) Sodium Potassium Chloride Carbon Dioxide Anion Gap BUN Creatinine Creat Clearance w eGFR Random Glucose Hemoglobin A1c % Calcium Phosphorus Magnesium Total Bilirubin GGT AST ALT Alkaline Phosphatase Creatine Kinase Troponin I < 0.02 Total Protein Albumin Cholesterol TSH Alcohol, Quantitative < 3.0 09/05/18 09/05/18 09/05/18 01:22 01:22 06:35 WBC 7.0 RBC 4.68 Hgb 14.5 Hct 41.8 MCV 89.3 MCH 30.9 MCHC 34.6 RDW 14.5 Plt Count 269 MPV 7.3 L Absolute Neuts (auto) 4.9 Neutrophils % 70.8 Lymphocytes % 17.3 Monocytes % 10.6 H Eosinophils % 0.8 Basophils % 0.5 Nucleated RBC % 0 PT with INR INR PTT (Actin FS) Sodium Potassium Chloride Carbon Dioxide Anion Gap BUN Creatinine Creat Clearance w eGFR Random Glucose Hemoglobin A1c % 6.0 Calcium Phosphorus Magnesium Total Bilirubin GGT 45 AST ALT Alkaline Phosphatase Creatine Kinase Troponin I Total Protein Albumin Cholesterol TSH Alcohol, Quantitative 09/05/18 09/05/18 06:35 06:35 WBC RBC Hgb Hct MCV MCH MCHC RDW Plt Count MPV Absolute Neuts (auto) Neutrophils % Lymphocytes % Monocytes % Eosinophils % Basophils % Nucleated RBC % PT with INR 12.80 INR 1.08 PTT (Actin FS) 37.8 H Sodium 133 L Potassium 3.7 Chloride 100 Carbon Dioxide 25 Anion Gap 8 BUN 11 Creatinine 0.7 Creat Clearance w eGFR 86.25 Random Glucose 107 H Hemoglobin A1c % Calcium 9.5 Phosphorus 3.6 Magnesium 2.1 Total Bilirubin 1.0 GGT AST 15 ALT 24 Alkaline Phosphatase 114 Creatine Kinase 130 Troponin I < 0.02 Total Protein 7.6 Albumin 3.7 Cholesterol 305 H TSH 3.79 H Alcohol, Quantitative Active Medications Atorvastatin Calcium (Lipitor -) 40 mg PO HS [facility] Enoxaparin Sodium (Lovenox -) 40 mg SQ DAILY [facility] Last Admin: 09/05/18 10:44 Dose: 40 mg Folic Acid (Folic Acid -) 1 mg PO DAILY [facility] Last Admin: 09/05/18 10:44 Dose: 1 mg Hydrochlorothiazide (Hctz -) 12.5 mg PO DAILY [facility] Last Admin: 09/05/18 10:44 Dose: 12.5 mg Lisinopril (Prinivil) 20 mg PO HS [facility] Last Admin: 09/04/18 22:50 Dose: 20 mg Lorazepam (Ativan -) 0.5 mg PO 0500,1100,1700,2300 [facility] Stop: 09/07/18 05:01 Lorazepam (Ativan -) 0.5 mg PO Q4H PRN PRN Reason: Symptoms of Withdrawal Stop: 09/07/18 04:59 Lorazepam (Ativan -) 1 mg PO 0500,1100,1700,2300 [facility] Stop: 09/05/18 23:01 Last Admin: 09/05/18 11:39 Dose: 1 mg Lorazepam (Ativan -) 1 mg PO Q4H PRN PRN Reason: Symptoms of Withdrawal Stop: 09/06/18 23:00 Metoprolol Succinate (Toprol Xl -) 25 mg PO DAILY [facility] Neomycin/Polymyxin/Hydrocortisone (Cortisporin Otic Solution -) 4 drop AU Q6H [facility] Last Admin: 09/05/18 05:45 Dose: 4 drop Thiamine HCl (Vitamin B1 -) 100 mg PO DAILY [facility] Last Admin: 09/05/18 10:44 Dose: 100 mg IMAGING: -Chest CTA: No evidence of pulmonary embolism or acute pathology within the chest. -Duplex: There is no evidence of deep venous thromboses in both lower extremities. -Abdominal US: Diffuse fatty infiltration of the liver. Prominent CBD. -Head CT W/WO Contrast: No evidence of acute intracranial hemorrhage, edema, midline shift, mass effect, or skull fracture. There is no CT evidence of acute territorial infarction. No evidence of acute otomastoiditis. No evidence of acute sinusitis is seen in the visualized paranasal sinuses. -CT Facial bones w/o contrast: No evidence of acute facial fracture. No evidence of acute sinusitis. No evidence of acute otomastoiditis. -EKG: NSR, LAD, VR 90, QTc 477 -ECHO: LV Systolic function is normal, Valves not well visualized ASSESSMENT/PLAN: 57 y/o F with PMHx of HTN, preDM, breast ca (s/p b/l mastectomy) presents with palpitations and L ear pain. #Palpitations -Unclear Etiology; In the setting of Anxiety, EtOH withdrawal -EKG not significant for arrhythmias, Echo noted above -Trops <0.02 x2 -Tele -TSH mildly elevated, Will need to repeat as an outpatient -Cardiology consulted, Appreciate rec's -Metoprolol Succinate 25mg PO Daily for sx control #HTN, Improving -Continue Hctz 12.5mg PO Daily, Lisinopril 20mg PO HS, Metoprolol Succinate #Otitis externa -Imaging noted above -Neomycin/Polymyxin/Hydrocortisone drops Q6H #HLD -Lipid panel pending -Atorvastatin 40 mg PO HS [facility] #PreDM -A1c 6.0% -Counselled on diet, exercise and weight loss -Continue Lisinopril #Elevated Alk Phos -Now WNL, Continue to monitor #Concern for possible alcohol withdawal -Continue Lorazepam protocol -Folic Acid 1 mg PO Daily, Thiamine 100 mg PO Ddaily #FEN -No standing fluids -Lytes WNL -Sodium controlled diet #PPx -DVT: Enoxaparin Visit type - Emergency Visit Emergency Visit: Yes ED Registration Date: 09/04/18 Care time: The patient presented to the Emergency Department on the above date and was hospitalized for further evaluation of their emergent condition. - New Patient This patient is new to me today: Yes Date on this admission: 09/05/18 - Critical Care Critical Care patient: No - Discharge Referral Referred to [facility] No
[2018-09-05] MEDS: metoPROLOL SUCCINATE 25 MG TAB.SR.24H (FP) PO SCH (18:19)
[2018-09-05] MEDS: LISINOPRIL 20 MG TABLET (FP) PO SCH (21:16)
[2018-09-05] MEDS ORDERED: ATORVASTATIN CA 40 MG TABLET (FP) PO SCH (22:00)
[2018-09-06] MEDS ORDERED: LORazepam 0.5 MG TABLET PO PRN (05:00)
[2018-09-06] MEDS: LORazepam 0.5 MG TABLET PO SCH ×2 (06:41→11:55)
[2018-09-06] MEDS: NEOMYCIN/POLYMYXN/HC OTIC SOLUTION 10 ML BOTTLE AU SCH ×4 (06:42→13:03)
[2018-09-06 06:53] LABS: BASO % 0.5 % (0-2.0); EOS % 1.9 % (0-4.5); HEMOGLOBIN 14.6 GM/dL (10.7-15.3); LYMPH % 26.8 % (8-40); MCH 30.7 pg (25.7-33.7); MCHC 33.9 g/dl (32.0-36.0); MEAN CELL VOLUME 90.6 fl (80-96); MEAN PLT VOLUME 7.4 fl (7.5-11.1); MONO % 11.8 % (3.8-10.2); PLATELET COUNT 280 K/MM3 (134-434); RBC 4.74 M/mm3 (3.60-5.2); RDW 14.3 % (11.6-15.6); WHITE BLOOD COUNT 7.5 K/mm3 (4.0-10.0)
[2018-09-06 07:20] LABS: ALBUMIN 3.5 g/dl (3.4-5.0); ALK PHOS 105 U/L (45-117); ANION GAP 9 MMOL/L (8-16); BILIRUBIN,TOTAL 0.7 mg/dL (0.2-1); BLOOD UREA NITROGEN 25 mg/dL (7-18); CALCIUM 9.3 mg/dL (8.5-10.1); CHLORIDE 100 mmol/L (98-107); CHOLESTEROL 273 mg/dL (50-200); CO2 25 mmol/L (21-32); CREATININE 0.8 mg/dL (0.55-1.3); GLUCOSE,RANDOM 118 mg/dL (74-106); HDL CHOLESTEROL 62 mg/dL (40-60); MAGNESIUM 2.3 mg/dL (1.8-2.4); PHOSPHOROUS 4.6 mg/dL (2.5-4.9); POTASSIUM 4.2 mmol/L (3.5-5.1); SGOT/AST 17 U/L (15-37); SGPT/ALT 24 U/L (13-61); SODIUM 134 mmol/L (136-145); TOT PROT 7.6 g/dl (6.4-8.2); TRIGLYCERIDES 152 mg/dL (0-150)
--- NOTE | 2018-09-06 07:45 | PN ---
Teaching Attending Note Name of Resident: Carri Georges ATTENDING PHYSICIAN STATEMENT I saw and evaluated the patient. I reviewed the resident's note and discussed the case with the resident. I agree with the resident's findings and plan as documented. SUBJECTIVE: OBJECTIVE: Vital Signs Temperature 98 F 09/06/18 06:46 Pulse Rate 72 09/06/18 06:46 Respiratory Rate 20 09/06/18 06:46 Blood Pressure 116/81 09/06/18 06:46 O2 Sat by Pulse Oximetry (%) 97 09/05/18 21:00 middle aged F hemodynamically stable no episode of tachycardia since hospitalization HEENT: :Left ear discharge and erythem aor surrounding skin NECK; No JVd No bruit CHEST: CTA B/L CVS: s1S2 r no m/g/r ABD: No distention, non tender Bs + EXT: No lakhwinder afeet, no calf tenderness REPAIR WEAVER: AOX3 non focal Active Medications Atorvastatin Calcium (Lipitor -) 40 mg PO HS [facility] Last Admin: 09/05/18 21:16 Dose: 40 mg Enoxaparin Sodium (Lovenox -) 40 mg SQ DAILY [facility] Last Admin: 09/05/18 10:44 Dose: 40 mg Folic Acid (Folic Acid -) 1 mg PO DAILY [facility] Last Admin: 09/05/18 10:44 Dose: 1 mg Hydrochlorothiazide (Hctz -) 12.5 mg PO DAILY [facility] Last Admin: 09/05/18 10:44 Dose: 12.5 mg Lisinopril (Prinivil) 20 mg PO HS [facility] Last Admin: 09/05/18 21:16 Dose: 20 mg Lorazepam (Ativan -) 0.5 mg PO 0500,1100,1700,2300 [facility] Stop: 09/07/18 05:01 Last Admin: 09/06/18 06:41 Dose: 0.5 mg Lorazepam (Ativan -) 0.5 mg PO Q4H PRN PRN Reason: Symptoms of Withdrawal Stop: 09/07/18 04:59 Lorazepam (Ativan -) 1 mg PO Q4H PRN PRN Reason: Symptoms of Withdrawal Stop: 09/06/18 23:00 Metoprolol Succinate (Toprol Xl -) 25 mg PO DAILY [facility] Last Admin: 09/05/18 18:19 Dose: 25 mg Neomycin/Polymyxin/Hydrocortisone (Cortisporin Otic Solution -) 4 drop AU Q6H [facility] Last Admin: 09/06/18 06:42 Dose: 4 drop Thiamine HCl (Vitamin B1 -) 100 mg PO DAILY [facility] Last Admin: 09/05/18 10:44 Dose: 100 mg ASSESSMENT AND PLAN:57 year old woman with a history of HTN, breast cancer, bilateral mastectomies who presented to the ED with palpitations and left ear pain. Problem List - Problems (1) Palpitations Assessment/Plan: chronic H/O ETOH abuse, sinus tachycardia, previously worked up as per patient ECHO, Stress test at [facility] responded to B blockers, cleared by cardiology to DC no arrhythmia on tele monitor no arrythmai Code(s): R00.2 - PALPITATIONS (2) HTN (hypertension) Code(s): I10 - ESSENTIAL (PRIMARY) HYPERTENSION (3) Otitis externa Assessment/Plan: Needs ENT evaluation as oyut patient add Po Levofloxacin for 7 days and local treatment. Code(s): H60.90 - UNSPECIFIED OTITIS EXTERNA, UNSPECIFIED EAR Qualifiers: Otitis externa type: unspecified type Chronicity: acute Laterality: left Qualified Code(s): H60.502 - Unspecified acute noninfective otitis externa, left ear (4) ETOH abuse Assessment/Plan: doent want to go for rehab needs out patient F/U AAA Code(s): F10.10 - ALCOHOL ABUSE, UNCOMPLICATED (5) Carcinoma of breast Assessment/Plan: B/L Mastectomy no active issue) Code(s): C50.919 - MALIGNANT NEOPLASM OF UNSP SITE OF UNSPECIFIED FEMALE BREAST
--- NOTE | 2018-09-06 09:49 | PN ---
Progress Note, Physician Chief Complaint: seen and examined. No distress History of Present Illness: TELE:NSR - Current Medication List Current Medications: Active Medications Atorvastatin Calcium (Lipitor -) 40 mg PO HS [facility] Last Admin: 09/05/18 21:16 Dose: 40 mg Enoxaparin Sodium (Lovenox -) 40 mg SQ DAILY [facility] Last Admin: 09/05/18 10:44 Dose: 40 mg Folic Acid (Folic Acid -) 1 mg PO DAILY [facility] Last Admin: 09/05/18 10:44 Dose: 1 mg Hydrochlorothiazide (Hctz -) 12.5 mg PO DAILY [facility] Last Admin: 09/05/18 10:44 Dose: 12.5 mg Lisinopril (Prinivil) 20 mg PO HS [facility] Last Admin: 09/05/18 21:16 Dose: 20 mg Lorazepam (Ativan -) 0.5 mg PO 0500,1100,1700,2300 [facility] Stop: 09/07/18 05:01 Last Admin: 09/06/18 06:41 Dose: 0.5 mg Lorazepam (Ativan -) 0.5 mg PO Q4H PRN PRN Reason: Symptoms of Withdrawal Stop: 09/07/18 04:59 Lorazepam (Ativan -) 1 mg PO Q4H PRN PRN Reason: Symptoms of Withdrawal Stop: 09/06/18 23:00 Metoprolol Succinate (Toprol Xl -) 25 mg PO DAILY [facility] Last Admin: 09/05/18 18:19 Dose: 25 mg Neomycin/Polymyxin/Hydrocortisone (Cortisporin Otic Solution -) 4 drop AU Q6H [facility] Last Admin: 09/06/18 06:42 Dose: 4 drop Thiamine HCl (Vitamin B1 -) 100 mg PO DAILY [facility] Last Admin: 09/05/18 10:44 Dose: 100 mg - Objective Vital Signs: Vital Signs Temperature 98 F 09/06/18 06:46 Pulse Rate 72 09/06/18 06:46 Respiratory Rate 20 09/06/18 06:46 Blood Pressure 116/81 09/06/18 06:46 O2 Sat by Pulse Oximetry (%) 97 09/05/18 21:00 Constitutional: Yes: No Distress, Calm Cardiovascular: Yes: Regular Rate and Rhythm Respiratory: Yes: CTA Bilaterally Gastrointestinal: Yes: Soft Edema: No Neurological: Yes: Alert, Oriented Labs: CBC, BMP 09/06/18 05:30 09/06/18 05:30 INR, PTT INR 1.08 (0.83-1.09) 09/05/18 06:35 Laboratory Tests 09/06/18 09/06/18 05:30 05:30 WBC 7.5 Hgb 14.6 Hct 43.0 Plt Count 280 Sodium 134 L Potassium 4.2 BUN 25 H - ....Imaging EKG: Image Reviewed Assessment/Plan 1. Palpitations: tele WNL - trop neg x 2 - echo technically difficult, grossly nl LV function - reportedly prior stress normal - palps for at least 6 months, bothersome to patient - start metoprolol for symptom control 2.HTN: - on amlodipine, started here on HCTZ and lisinopril - monitor BP, improved - also treating for EtOH withdrawal 3. Otitis externa: - manage per primary 4. EtOH withdrawal: - CIWA protocol per primary 5. HLD: - total cholesterol 305 - check complete lipid panel - started atorvastatin Can d/c telemetry
[2018-09-06] MEDS: FOLIC ACID 1 MG TABLET (FP) PO SCH (11:43)
[2018-09-06] MEDS: HYDROCHLOROTHIAZIDE 12.5 MG CAPSULE (FP) PO SCH (11:44)
[2018-09-06] MEDS: THIAMINE HCL 100 MG TABLET (FP) PO SCH (11:44)
[2018-09-06] MEDS: ENOXAPARIN NA (PORCINE) 40 MG/0.4 ML DISP.SYRIN SQ SCH (11:44)
[2018-09-06] MEDS: metoPROLOL SUCCINATE 25 MG TAB.SR.24H (FP) PO SCH (11:44)
--- NOTE | 2018-09-06 12:57 | DS ---
Physical Exam: SUBJECTIVE: Patient seen and examined this AM. No longer having palpitations, No chest pain, No SOB. OBJECTIVE: Vital Signs Period Temp Pulse Resp BP Sys/Singh Pulse Ox Last 24 Hr 97.6 F-99 F 72-100 18-20 114-149/58-98 97 PHYSICAL EXAM GENERAL: A&Ox3, NAD HEAD: NCAT EYES: PERRL, EOMI ENT: L Ear external ulceration with mild tenderness to touch, no drainage, moist mucous membranes NECK: Supple LUNGS: Diminished breath sounds at the bases, No wheezes, no crackles HEART: Regular rate and rhythm, S1, S2 without murmur ABDOMEN: Obese, Soft, nontender, nondistended, + bowel sounds, no guarding EXTREMITIES: No edema NEUROLOGICAL: Cranial nerves II through XII grossly intact. SKIN: Warm, dry LABS Laboratory Last Values WBC 7.5 K/mm3 (4.0-10.0) 09/06/18 05:30 RBC 4.74 M/mm3 (3.60-5.2) 09/06/18 05:30 Hgb 14.6 GM/dL (10.7-15.3) 09/06/18 05:30 Hct 43.0 % (32.4-45.2) 09/06/18 05:30 MCV 90.6 fl (80-96) 09/06/18 05:30 MCH 30.7 pg (25.7-33.7) 09/06/18 05:30 MCHC 33.9 g/dl (32.0-36.0) 09/06/18 05:30 RDW 14.3 % (11.6-15.6) 09/06/18 05:30 Plt Count 280 K/MM3 (134-434) 09/06/18 05:30 MPV 7.4 fl (7.5-11.1) L 09/06/18 05:30 Absolute Neuts (auto) 4.4 K/mm3 (1.5-8.0) 09/06/18 05:30 Neutrophils % 59.0 % (42.8-82.8) 09/06/18 05:30 Lymphocytes % 26.8 % (8-40) D 09/06/18 05:30 Monocytes % 11.8 % (3.8-10.2) H 09/06/18 05:30 Eosinophils % 1.9 % (0-4.5) D 09/06/18 05:30 Basophils % 0.5 % (0-2.0) 09/06/18 05:30 Nucleated RBC % 0 % (0-0) 09/06/18 05:30 PT with INR 12.80 SEC (9.7-13.0) 09/05/18 06:35 INR 1.08 (0.83-1.09) 09/05/18 06:35 PTT (Actin FS) 37.8 SECONDS (25.2-36.5) H 09/05/18 06:35 D-Dimer 763 ng/ml (0-500) H 09/04/18 11:01 Sodium 134 mmol/L (136-145) L 09/06/18 05:30 Potassium 4.2 mmol/L (3.5-5.1) 09/06/18 05:30 Chloride 100 mmol/L (98-107) 09/06/18 05:30 Carbon Dioxide 25 mmol/L (21-32) 09/06/18 05:30 Anion Gap 9 MMOL/L (8-16) 09/06/18 05:30 BUN 25 mg/dL (7-18) H 09/06/18 05:30 Creatinine 0.8 mg/dL (0.55-1.3) 09/06/18 05:30 Creat Clearance w eGFR 73.93 (>60) 09/06/18 05:30 Random Glucose 118 mg/dL (74-106) H 09/06/18 05:30 Hemoglobin A1c % 6.0 % (4.2-6.3) 09/05/18 01:22 Calcium 9.3 mg/dL (8.5-10.1) 09/06/18 05:30 Phosphorus 4.6 mg/dL (2.5-4.9) 09/06/18 05:30 Magnesium 2.3 mg/dL (1.8-2.4) 09/06/18 05:30 Total Bilirubin 0.7 mg/dL (0.2-1) 09/06/18 05:30 GGT 45 U/L (5-85) 09/05/18 01:22 AST 17 U/L (15-37) 09/06/18 05:30 ALT 24 U/L (13-61) 09/06/18 05:30 Alkaline Phosphatase 105 U/L (45-117) 09/06/18 05:30 Creatine Kinase 130 U/L (26-192) 09/05/18 06:35 Creatine Kinase Index 0.8 % (0.0-5.0) 09/04/18 09:00 CK-MB (CK-2) 1.6 ng/mL (0.5-3.6) 09/04/18 09:00 Troponin I < 0.02 ng/ml (0.00-0.05) 09/05/18 06:35 Total Protein 7.6 g/dl (6.4-8.2) 09/06/18 05:30 Albumin 3.5 g/dl (3.4-5.0) 09/06/18 05:30 Triglycerides 152 mg/dL (0-150) H 09/06/18 05:30 Cholesterol 273 mg/dL (50-200) H 09/06/18 05:30 Total LDL Cholesterol 189 mg/dL (5-100) H 09/06/18 05:30 HDL Cholesterol 62 mg/dL (40-60) H 09/06/18 05:30 TSH 3.79 uIU/ml (0.358-3.74) H 09/05/18 06:35 Urine Color Yellow 09/04/18 09:15 Urine Appearance Clear 09/04/18 09:15 Urine pH 8.0 (5.0-8.0) 09/04/18 09:15 Ur Specific [place] 1.014 (1.010-1.035) 09/04/18 09:15 Urine Protein 1+ (NEGATIVE) H 09/04/18 09:15 Urine Glucose (UA) Negative (NEGATIVE) 09/04/18 09:15 Urine Ketones 1+ (NEGATIVE) H 09/04/18 09:15 Urine Blood Negative (NEGATIVE) 09/04/18 09:15 Urine Nitrite Negative (NEGATIVE) 09/04/18 09:15 Urine Bilirubin Negative (NEGATIVE) 09/04/18 09:15 Urine Urobilinogen 0.2 mg/dL (0.2-1.0) 09/04/18 09:15 Ur Leukocyte Esterase Negative (NEGATIVE) 09/04/18 09:15 Urine WBC (Auto) 1 /hpf (0-5) 09/04/18 09:15 Urine RBC (Auto) 1 /hpf (0-4) 09/04/18 09:15 Urine Casts (Auto) 0 /lpf (0-8) 09/04/18 09:15 U Epithel Cells (Auto) 0.9 /HPF (0-5/HPF) 09/04/18 09:15 Urine Bacteria (Auto) 9.0 /hpf (NEGATIVE) 09/04/18 09:15 Alcohol, Quantitative < 3.0 mg/dL (0.0-5.0) 09/04/18 19:30 IMAGING: -Chest CTA: No evidence of pulmonary embolism or acute pathology within the chest. -Duplex: There is no evidence of deep venous thromboses in both lower extremities. -Abdominal US: Diffuse fatty infiltration of the liver. Prominent CBD. -Head CT W/WO Contrast: No evidence of acute intracranial hemorrhage, edema, midline shift, mass effect, or skull fracture. There is no CT evidence of acute territorial infarction. No evidence of acute otomastoiditis. No evidence of acute sinusitis is seen in the visualized paranasal sinuses. -CT Facial bones w/o contrast: No evidence of acute facial fracture. No evidence of acute sinusitis. No evidence of acute otomastoiditis. -EKG: NSR, LAD, VR 90, QTc 477 -ECHO: LV Systolic function is normal, Valves not well visualized HOSPITAL COURSE: Date of Admission:09/04/18 Date of Discharge: 09/06/18 57 y/o F with PMHx of HTN, preDM, breast ca (s/p b/l mastectomy) presents with palpitations and L ear pain. Imaging, EKG, Echo and labwork noted above. Cardiology was consulted and patient was started on a beta sarah with which her sx's resolved. Additionally she was started on an ACEi and Thiazide diuretic , which her BP reached goal. She was started on Cortisporin drops with which her ear pain and drainage improved. Patients lipid panel was reviewed (noted above) and she was started on a statin. She was counselled at length on weight loss, diet and exercise to improve her A1c and LDL. Patient did not want additional resources for help with EtOH cessation. Patient was informed her TSH was mildly elevated and that she will need a repeat as an outpatient. Patient to be discharged home on a Levaquin course for 7 days and with strict instruction to follow up with Cardiology and ENT. Minutes to complete discharge: 36 Discharge Summary Reason For Visit: ELEVATED BLOOD PRESSURE READING/PALIPATIONS/ Current Active Problems ETOH abuse (Acute) Otitis externa (Acute) Palpitations (Chronic) Condition: Improved - Instructions Diet, Activity, Other Instructions: You were admitted to the hospital because you had palpitations and Ear pain. Medication Changes: 1. Continue Metoprolol Succinate (Toprol XL) 25mg daily to help with the palpiations 2. Continue Lisinopril 20mg at bedtime 3. Continue Hydrochlorathiazide (HCTZ) 12.5mg daily 4. Continue Atorvastatin (Lipitor) 40mg at bedtime 5. Start Levaquin 750mg daily for 7 days Follow up with the following physicians: 1. Primary care physician in one week 2. Cardiology--Dr. Zamora in one week to further manage your palpitations 3. ENT--Dr. Del Angel to further manage your ear pain Your A1c was found to be 6.0%--This suggests you have pre-Diabetes. Please follow up with your PCP to further manage. In the interm, Please continue to exercise and improve your diet (by avoiding sugars, carbohydrates). Additionally , Weight loss can help bring your A1c back to normal. You need to have your Thyroid Stimulating hormone level check again; It was high during your hospital stay. Follow up with your PCP. Continue all your other medications as prescribed Please return to the ER if you have any signs or symptoms of chest pain, shortness of breath, uncontrollable fever, chills, nausea, vomiting, numbness, tingling, or weakness in any part of your body, changes in vision, slurred speech, changes in speech/gait, or dizziness. Please return to the ER if symptoms persist, worsen, or new symptoms arise. Referrals: Scotty Zamora MD [Staff Physician] - Frederick Del Angel MD [Staff Physician] - Disposition: HOME - Home Medications Comprehensive Discharge Medication List: Ambulatory Orders Atorvastatin Ca [Lipitor] 40 mg PO HS #30 tablet 09/06/18 Hydrochlorothiazide [Hctz -] 12.5 mg PO DAILY #30 cap 09/06/18 Levofloxacin [Levaquin] 750 mg PO DAILY #7 tablet 09/06/18 Lisinopril [Prinivil] 20 mg PO HS #30 tablet 09/06/18 Metoprolol Succinate [Toprol XL -] 25 mg PO DAILY #30 tab.sr.24h 09/06/18 This patient is new to me today: No Emergency Visit: Yes ED Registration Date: 09/04/18 Care time: The patient presented to the Emergency Department on the above date and was hospitalized for further evaluation of their emergent condition. Critical Care patient: No - Discharge Referral Referred to [facility] Med P.C.: No
[2018-09-06 13:37] VITALS: BP 116/82; PULSE 85; TEMP 99.2
== END 2018-09-06 14:15 | disposition home or self-care (01) | DRG 155 ==
LOC: JER 06:48 → JERBED 18:30 → OBSVTOIN 19:43 → J4W 09-05 15:33
PROVIDERS: ADMIT Internal Medicine; ATTEND Internal Medicine
DX: H60.502 Unspecified acute noninfective otitis externa, left ear (principal); F10.230 Alcohol dependence with withdrawal, uncomplicated; R00.2 Palpitations; L98.499 Non-pressure chronic ulcer of skin of other sites with unspecified severity; I10 Essential (primary) hypertension; Z85.3 Personal history of malignant neoplasm of breast; Z90.13 Acquired absence of bilateral breasts and nipples; R73.03 Prediabetes; E66.9 Obesity, unspecified; Z68.31 Body mass index [BMI] 31.0-31.9, adult; E78.5 Hyperlipidemia, unspecified
CPT/HCPCS: 36415; 70470-TC; 70486-TC; 71275-TC; 76705-TC; 80053; 80061; 80307; 81003; 82465; 82550; 82553; 82977; 83036; 83721; 83735; 84100; 84443; 84484; 85025; 85379; 85610; 85730; 93005; 93010; 93306-TC; 93970-TC; 99285-25; G0378; J0131; J7030